=== PATIENT | male | born 1950 | race Caucasian/White ===

== ENCOUNTER 2017-09-16 04:43 | Emergency (ER) | payer OTHER ==
[2017-09-16 05:25] LABS: Hematocrit 42.5 % (42.0-52.0); Hemoglobin 14.3 gm/dL (13.5-18.0); Mean Cell Volume 93.8 fl (78-100); Mean Corpuscular Hemoglobin 31.6 pg (27-31); Mean Corpuscular Hgb Conc 33.6 g/dl (32-36); Neutrophil % 66.9 % (42-75.0); Platelet Count 179 K/mm3 (150-450); Red Blood Count 4.53 M/mm3 (4.7-6.0); Red Cell Distribution Width 13.5 % (11.5-14.0); White Blood Count 7.4 K/mm3 (4.0-10.5)
[2017-09-16 05:40] LABS: Albumin * 3.6 gm/dl (3.4-5.0); Anion Gap 14.3 mmol/L (6.8-13.8); Bilirubin, Total 0.6 mg/dL (0.0-1.1); Ca. Corrected For Albumin 8.7 mg/dL (8.4-10.2); Calcium * 8.7 mg/dL (7.9-10.9); Carbon Dioxide 24.6 mmol/L (24-32.6); Potassium 3.9 mmol/L (3.4-4.6); Total Protein 6.2 gm/dL (6.2-8.2)
--- NOTE | 2017-09-16 06:05 | ERNOTE ---
Medical Problem HPI - Narrative Date of Service: 09/16/17 - General Chief Complaint: General Assessment Time Seen by Provider: 09/16/17 04:55 Source: patient Exam Limitations: no limitations - Immun/Allergies/Home Medications Immunizations: IMMUNIZATION HX Immunizations Up to Date Yes Allergies/Adverse Reactions: Allergies cat dander Allergy (Verified 09/16/17 05:08) grass pollen Allergy (Verified 09/16/17 05:08) pollen extracts Allergy (Verified 09/16/17 05:08) promethazine [From Phenergan] Allergy (Verified 09/16/17 04:53) molds Allergy (Uncoded 09/16/17 05:08) Home Medications: HOME MEDICATIONS Amox Tr/Potassium Clavulanate [Augmentin 875-125 Tablet] 875 mg PO Q12H [Last Taken Unknown] Apixaban [Eliquis] 5 mg PO BID 09/16/17 [Last Taken Unknown] Atenolol [Tenormin] 200 mg PO DAILY 09/16/17 [Last Taken Unknown] Bupropion HCl [Wellbutrin Xl] 300 mg PO DAILY 09/16/17 [Last Taken Unknown] Finasteride [Proscar] 5 mg PO DAILY 09/16/17 [Last Taken Unknown] Flecainide Acetate 100 mg PO DAILY 09/16/17 [Last Taken Unknown] Fluticasone/Salmeterol [Advair 500-50 Diskus] 1 puff IH BID 09/16/17 [Last Taken Unknown] Lamotrigine [Lamictal] 200 mg PO BID 09/16/17 [Last Taken Unknown] Meloxicam [Mobic] 15 mg PO DAILY 09/16/17 [Last Taken Unknown] Ranitidine HCl [Zantac] 150 mg PO BID 09/16/17 [Last Taken Unknown] Sildenafil Citrate [Viagra] 25 mg PO PRN 09/16/17 [Last Taken Unknown] Tamsulosin HCl [Flomax] 0.4 mg PO DAILY 09/16/17 [Last Taken Unknown] Temazepam 15 mg PO HS #5 capsule 09/16/17 [Last Taken Unknown] traZODone HCL [Trazodone HCl] 100 mg PO HS 09/16/17 [Last Taken Unknown] - History of Present History Narrative: patient presents to ed with complaint of insomnia, has had recent health issues and is unable to sleep Timing: constant, getting worse Severity: moderate Modifying Factors - (Improves): Present: other - nothing Modifying Factors - (Worsens): Present: other - nothing Review of Systems - Narrative Narrative: see chief complaint - Review of Systems Constitutional: Present: See HPI, weakness, fatigue, malaise EYE: Present: no symptoms reported ENT: Present: no symptoms reported Respiratory: Present: no symptoms reported Cardiology: Present: no symptoms reported Gastrointestinal/Abdominal: Present: no symptoms reported Genitourinary: Present: no symptoms reported Musculoskeletal: Present: no symptoms reported Skin: Present: no symptoms reported Neurological: Present: See HPI, anxiety, depressed, emotional problems, weakness Endocrine: Present: no symptoms reported Hematologic/Lymphatic: Present: no symptoms reported Psych: Present: no symptoms reported All Other Systems: All systems neg except as marked - Narrative Narrative: unremarkable - Patient's Past Medical History Patient History - Medical: GERD, Obesity Patient History - Cardiac/Respiratory: Atrial Fibrillation, Asthma, TIA Patient History - Cancer: No Hx of Cancer Patient History - Surgical Procedures: T & A - Family History Family History:: no untoward family reactions to anesthesia, no familial bleeding tendencies, no family history of clotting disorders, no family history of premature - Social History Living Situations: home Psych History: Hx of Anxiety, Hx of Depression, Hx of Bipolar Disorder, Current tx/ever been on anti-depressants or anti-anxiety meds Does anyone smoke in the home?: No Smoking Status: Never smoker Have you smoked in the past 12 months: No Do you dip or chew tobacco: No Patient requests Smoking Cessation Consult: No Initiate information on Smoking Cessation: No Alcohol Use: none Drug Use: none - Immunizations Immunizations Up to Date: Yes Physical Exam - Physical Exam General Appearance: Present: mild distress, anxious Head Exam: Present: normal inspection, no evidence of injury Eye Exam: Normal inspection: bilateral, PERRL: bilateral, EOMI: bilateral Ears, Nose, Throat: Present: normal ENT inspection, normal pharynx Neck: Present: normal inspection, nontender Respiratory: Present: no respiratory distress, normal breath sounds, no accessory muscle use, chest nontender, lungs clear Cardiovascular/Chest: Present: regular rate, rhythm Peripheral Pulses: N=norm/S=strong/W=weak/B=bound/A=absent: Carotid (R): Normal , Carotid (L): Normal, Radial (R): Normal, Radial (L): Normal, Femoral (R): Normal, Femoral (L): Normal, Dorsalis-pedis (R): Normal, Dorsalis-pedis (L): Normal Gastrointestinal/Abdominal: Present: normal bowel sounds, nontender, nondistended, soft, no organomegaly Back Exam: Present: normal inspection, normal range of motion, no CVA tenderness , no vertebral tenderness Extremity Exam: Present: normal inspection, non-tender, normal range of motion, no edema Neurological Exam: Present: alert, oriented, normal mood/affect, no motor/ sensory deficits DTR: N=norm/NB=norm/brisk/A=abs/DD=dull/dimin/HC=hyperactive: Bicep (R): Normal , Bicep (L): Normal, Tricep (R): Normal, Tricep (L): Normal, Knee (R): Normal, Knee (L): Normal, Ankle (R): Normal, Ankle (L): Normal Skin Exam: Present: normal color, warm/dry Lymphatic Exam: Present: no adenopathy ED Progress - Date and Time Seen: Date and Time: 09/16/17 06:02 condition unchanged, discussed labs with patient to be dismissed - Results and Orders Patient's Lab Results:: I have reviewed the patient's lab results. - Vital Signs Patient's Vital Signs:: I have reviewed the patient's vital signs. Vital Signs: Vital Signs 09/16/17 09/16/17 09/16/17 04:47 05:02 05:43 Temperature 36.8 C Pulse Rate 79 70 66 Respiratory 18 18 20 Rate Blood Pressure 153/84 111/62 104/66 O2 Sat by Pulse 93 91 93 Oximetry - EKG EKG: NSR, other - first degree av block EKG read: Interp. by me - Progress/Reassessment Chief Complaint: General Assessment Progress:: Unchanged - Transfer of Care Expected Disposition: Discharge Plan - Plan Plan: to be discharged Departure Clinical Impression: Insomnia - Departure Disposition: Home self-care Condition: Fair Instructions: Insomnia Referrals: Mary Ware MD [Primary Care Provider] - Prescriptions: Temazepam 15 mg PO HS #5 capsule
[2017-09-16 06:10] VITALS: BP 120/63
[2017-09-16] MEDS ORDERED: TEMAZEPAM 15 MG CAPSULE PO SCH (06:15)
== END 2017-09-16 06:32 | disposition home or self-care (01) ==
LOC: ER 04:43
DX: G47.00 Insomnia, unspecified (principal); I48.91 Unspecified atrial fibrillation; K21.9 Gastro-esophageal reflux disease without esophagitis; E66.9 Obesity, unspecified; Z68.36 Body mass index [BMI] 36.0-36.9, adult

== ENCOUNTER 2018-12-11 11:15 | Observation (INO) ==
[2018-12-11] MEDS ORDERED: PROCHLORPERAZINE EDISYLATE 5 MG/ML VIAL IV ONE (11:27)
[2018-12-11] MEDS ORDERED: NORMAL SALINE 1,000 ML IV ONE (11:27)
[2018-12-11] MEDS ORDERED: MORPHINE SULFATE 4 MG/ML SYRG IV ONE ×2 (11:28→12:10)
[2018-12-11 11:47] LABS: Hematocrit 48.5 % (42.0-52.0); Hemoglobin 15.9 gm/dL (13.5-18.0); Mean Cell Volume 93.6 fl (78-100); Mean Corpuscular Hemoglobin 30.7 pg (27-31); Mean Corpuscular Hgb Conc 32.8 g/dl (32-36); Mean Platelet Volume 11.3 fl (8-11.3); Neutrophil # 7.3 K/mm3 (1.3-6.0); Neutrophil % 78.2 % (42-75.0); Platelet Count 192 K/mm3 (150-450); Red Blood Count 5.18 M/mm3 (4.7-6.0); Red Cell Distribution Width 12.7 % (11.5-14.0); White Blood Count 9.3 K/mm3 (4.0-10.5)
[2018-12-11 12:07] LABS: Albumin * 3.7 gm/dl (3.4-5.0); Anion Gap 12.5 mmol/L (6.8-13.8); Bilirubin, Total 0.6 mg/dL (0.0-1.1); Ca. Corrected For Albumin 8.9 mg/dL (8.4-10.2); Carbon Dioxide 28.1 mmol/L (24-32.6); Potassium 4.6 mmol/L (3.4-4.6); Total Protein 6.9 gm/dL (6.2-8.2)
[2018-12-11 12:18] LABS: Urine Bilirubin Negative (NEGATIVE); Urine Blood Negative /ul (NEGATIVE); Urine Ketone Negative (NEGATIVE); Urine Nitrite Negative (NEGATIVE); Urine Protein Negative (NEGATIVE); Urine Specific Gravity 1.015 SP.GR. (1.005-1.030); Urine Urobilinogen Normal (NORMAL)
[2018-12-11 12:26] LABS: Urine Appearance Clear (CLEAR); Urine Color Yellow
[2018-12-11 12:27] LABS: Urine Bacteria None Seen; Urine RBC None Seen /hpf (0-5); Urine WBC 0-5 /hpf (0-5)
--- NOTE | 2018-12-11 12:50 | ERNOTE ---
Abdominal HPI - Narrative Date of Service: 12/11/18 - General Chief Complaint: Abdominal Pain Time Seen by Provider: 12/11/18 11:58 Source: patient Exam Limitations: no limitations - Immun/Allergies/Home Medications Immunizatons: IMMUNIZATION HX Immunizations Up to Date Yes History of Influenza Vaccine Yes Hx Pneumococcal Vaccination Yes Allergies/Adverse Reactions: Allergies No Known Allergies Allergy (Verified 11/26/18 15:16) Home Medications: HOME MEDICATIONS Atenolol [Tenormin] 200 mg PO DAILY MDD TAKES 2 TABS OF 100 MG 09/16/17 [Last Taken 10/01/18 07:00] Bupropion HCl [Wellbutrin Xl] 300 mg PO DAILY 09/16/17 [Last Taken 10/01/18 07:00] Flecainide Acetate 100 mg PO DAILY 09/16/17 [Last Taken 10/01/18 07:00] Cyanocobalamin [Vitamin B-12] 1,000 mcg PO DAILY 10/17/17 [Last Taken 10/01/18 07:00] lamoTRIgine [Lamictal] 200 mg PO BID 10/17/17 [Last Taken 10/01/18 07:00] loratadine 10 mg tablet 10 mg PO DAILY 03/14/18 [Last Taken 10/01/18 07:00] dexlansoprazole 30 mg capsule,biphase delayed release 30 mg PO DAILY #90 cap 03/21/18 [Last Taken 10/01/18 07:00] tamsulosin 0.4 mg capsule 0.4 mg PO BID cap 04/04/18 [Last Taken 10/01/18 07:00] valsartan 80 mg tablet 80 mg PO DAILY #30 tab 06/18/18 [Last Taken 10/01/18 07:00] fluticasone 500 mcg-salmeterol 50 mcg/dose blistr powdr for inhalation 1 inh IH BID #60 ea 07/06/18 [Last Taken 09/03/18] fluticasone 50 mcg/actuation nasal spray,suspension 2 spray PAULETTE DAILY #16 g 08/20/18 [Last Taken 09/03/18] [CPAP] 0 ea .ROUTE .MEDSUPPLY 09/03/18 [Last Taken 09/02/18] trazodone 100 mg tablet 200 mg PO HS PRN tab 09/20/18 [Last Taken 10/01/18 07:00] apixaban 5 mg tablet 5 mg PO BID 10/18/18 [Last Taken Unknown] ranitidine 300 mg capsule 300 mg PO HS #90 cap 10/29/18 [Last Taken Unknown] folic acid 1 mg tablet 1 mg PO DAILY #90 tab 11/27/18 [Last Taken Unknown] - History of Present Illness Narrative: Patient presents to the ED feeling quite poorly. Vomiting, severe upper abdominal discomfort, some loose stools. No Cp or SOB. This began today. He had eaten twice out of town yesterday on a trip to [facility] but no one else sick. No fever. No blood in the stool. Most pain mid-epigastric. Phenergan at home did not help. Timing: constant, other - fluctuating intensity Quality: aching Activities at Onset: none Modifying Factors - (Improves): Present: other - nothing Modifying Factors - (Worsens): Present: other - nothing Associated Symptoms: Absent: headache, fever/chills, shortness of breath Prior Abdominal Problems: Absent: similar symptoms Prior Treatment: Absent: recently seen Review of Systems - Review of Systems Constitutional: Absent: fever ENT: Present: no symptoms reported Respiratory: Absent: shortness of breath Cardiology: Absent: chest pain Gastrointestinal/Abdominal: Present: See HPI Genitourinary: Absent: dysuria Skin: Present: no symptoms reported Neurological: Absent: weakness Medical History (Updated 12/09/18 @ 15:39 by Mary Ware MD) Asthma Onset Date: Unknown Atrial fibrillation Onset Date: ~1993 intermittent BPH (benign prostatic hyperplasia) Onset Date: Unknown with obstruction/lower urinary tract symptoms Dyshidrotic eczema Onset Date: 11/19/15 Enlarged prostate with lower urinary tract symptoms (LUTS) Onset Date: Unknown Gastro-esophageal reflux Onset Date: Unknown Kidney stones Onset Date: ~09/2017 several on left side Knee pain Onset Date: Unknown right No history of alcohol use Non-tobacco user Psoriasis Onset Date: Unknown Right knee DJD Onset Date: Unknown Seasonal allergies Onset Date: Unknown [place] pollen, cedar pollen, elm pollen, grass, molds, mites, house dust, dust mites cat dander TBI (traumatic brain injury) Onset Date: 2006 2006 right side of head TIA (transient ischemic attack) Onset Date: 12/30/15 Weakness Onset Date: Unknown Wears glasses Wrist pain Onset Date: Unknown right wrist Surgical History: Surgical History (Updated 09/26/18 @ 11:53 by Mary Ware MD) H/O adenoidectomy Onset Date: ~1955 H/O right cataract extraction H/O tooth extraction Onset Date: ~1968 wisdom teeth H/O vasectomy Onset Date: ~1985 History of esophagogastroduodenoscopy (EGD) History of tonsillectomy Onset Date: ~1955 Status post debridement Onset Date: ~05/2007 Debridement and closure of lacerations. Multiple lacerations to scalp and right ear. Status post laser lithotripsy of ureteral calculus Family History: Family History (Last Reviewed 12/11/18 @ 12:44 by Davide Laura MD) Brother Kidney stones Environmental allergies Osteoarthritis Daughter Alive and well Daughter Alive and well Father , 78 A-fib Cancer bile duct cancer Hypertension Mother , 80s Alzheimers disease A-fib Heart disease CABG Cancer Endometrial cancer Hypertension Social History: Preferred Language Dominican Do you have any hinduism or Yes: gnosticist cultural preference? Smoking Status Never smoker Abuse History No History of abuse Psych History No pertinent hx,Hx of Anxiety,Currently on Meds Alcohol Use none Drug Use none (Last Updated 12/09/18 @ 15:40 by Mary Ware MD) No Social History Section defined Physical Exam - Physical Exam General Appearance: Present: alert, other - does not appear to feel well Head Exam: Present: normal inspection, no evidence of injury Eye Exam: Normal inspection: bilateral, PERRL: bilateral Ears, Nose, Throat: Present: dry mucous membranes Neck: Present: normal inspection Respiratory: Present: no respiratory distress, no accessory muscle use, lungs clear Cardiovascular/Chest: Absent: irregularly irregular Gastrointestinal/Abdominal: Present: normal bowel sounds, soft, tenderness, other - tenderness epigastrium, moderate, some guarding with this. no mass. No other tendenress. Extremity Exam: Present: other - no deformity Neurological Exam: Present: alert, other - no acute unilateral focal motor or sensory deficits Skin Exam: Present: normal color, warm/dry Progress - Results and Orders Patient's Lab Results:: I have reviewed the patient's lab results. - Vital Signs Patient's Vital Signs:: I have reviewed the patient's vital signs. Vital Signs: Vital Signs 12/11/18 11:15 12/11/18 11:50 12/11/18 12:21 Temperature 36.8 C Pulse Rate 77 69 62 Respiratory Rate 14 15 14 Blood Pressure 134/78 128/79 114/73 O2 Sat by Pulse Oximetry 97 95 91 L - X-Ray X-Ray #1 X-Ray: abdomen Interpretation: Interp. by me X-ray Comments: I reviewed official radiology report - Progress/Reassessment Chief Complaint: Abdominal Pain Progress Note-Subjective: 12/11/18 12:[address] Ware, he is not here today. 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 He is going to need a CT but with his nausea we will give him some time with the antiemetics before he starts drinking contrast. Patient agreeable. Departure Clinical Impression: Abdominal pain, Vomiting, Dehydration, Colitis - Departure Disposition: Still a patient Condition: Stable
[2018-12-11] MEDS ORDERED: DIATRIZOATE MEGLUMINE, SODIUM 30 ML BTL PO ONE (13:47)
--- NOTE | 2018-12-11 16:25 | HPDIS ---
Chief Complaint - Chief Complaint Date of Service: 12/11/18 Time of Service: 16:01 Chief Complaint: Abdominal Pain History of Present Illness: Iglesia is a 68 yo male that reports sudden onset of severe epigastric abdominal pain with radiation to LUQ. He also had nausea and vomiting and stools are softer than usual. He had phenergan at home but this did not help with nausea. He reports traveling to [place] yesterday and ate at [facility] in [place] and [facility], but did not think anything was otherwise out of the ordinary. He denies any friends or family with similar episodes and he has otherwise been feeling well. He has not had any similar symptoms in the past. Vomit was food contents, no blood. No blood in stools. No fever, chills. He reports usual sinus symptoms but otherwise nothing out of the ordinary. Medical History (Updated 12/11/18 @ 16:25 by Jesus Bradley DO) Asthma Onset Date: Unknown Atrial fibrillation Onset Date: ~1993 intermittent BPH (benign prostatic hyperplasia) Onset Date: Unknown with obstruction/lower urinary tract symptoms Dyshidrotic eczema Onset Date: 11/19/15 Enlarged prostate with lower urinary tract symptoms (LUTS) Onset Date: Unknown Gastro-esophageal reflux Onset Date: Unknown Kidney stones Onset Date: ~09/2017 several on left side Knee pain Onset Date: Unknown right No history of alcohol use Non-tobacco user Psoriasis Onset Date: Unknown Right knee DJD Onset Date: Unknown Seasonal allergies Onset Date: Unknown [place] pollen, cedar pollen, elm pollen, grass, molds, mites, house dust, dust mites cat dander TBI (traumatic brain injury) Onset Date: 2006 2006 right side of head TIA (transient ischemic attack) Onset Date: 12/30/15 Weakness Onset Date: Unknown Wears glasses Wrist pain Onset Date: Unknown right wrist Surgical History: Surgical History (Updated 12/11/18 @ 16:25 by Jesus Bradley DO) H/O adenoidectomy Onset Date: ~1955 H/O right cataract extraction H/O tooth extraction Onset Date: ~1968 wisdom teeth H/O vasectomy Onset Date: ~1985 History of esophagogastroduodenoscopy (EGD) History of tonsillectomy Onset Date: ~1955 Status post debridement Onset Date: ~05/2007 Debridement and closure of lacerations. Multiple lacerations to scalp and right ear. Status post laser lithotripsy of ureteral calculus Family History: Family History (Last Reviewed 12/11/18 @ 13:23 by Claude Sylvester RN) Brother Kidney stones Environmental allergies Osteoarthritis Daughter Alive and well Daughter Alive and well Father , 78 A-fib Cancer bile duct cancer Hypertension Mother , 80s Alzheimers disease A-fib Heart disease CABG Cancer Endometrial cancer Hypertension Social History: Patient Lives/Resources With Spouse Utilized Occupation Doctor Preferred Language [place] Do you have any amish or Yes: Yazidi cultural preference? Smoking Status Never smoker Have you smoked in the past 12 No months Do you dip or chew tobacco No Abuse History No History of abuse Psych History No pertinent hx,Hx of Anxiety,Currently on Meds Alcohol Use none Drug Use none (Last Updated 12/09/18 @ 15:40 by Mary Ware MD) No Social History Section defined Review Of Systems (GEN) - Review of Systems Generalized/Overall Review: Absent: Weakness, Chills, Fever EENTM: Present: No Symptoms Reported Respiratory: Present: No Symptoms Reported Cardiac: Present: No Symptoms Reported Abdominal: Present: Nausea, Vomiting, Abdominal Pain. Absent: Hematemesis, Constipation, Melena Genitourinary: Present: No Symptoms Reported Musculoskeletal: Present: No Symptoms Reported Neurological: Present: No Symptoms Reported Skin: Present: No Symptoms Reported Immunizations: IMMUNIZATION HX Immunizations Up to Date Yes History of Influenza Vaccine Yes Hx Pneumococcal Vaccination Yes Allergies/Adverse Reactions: Allergies Allergy/AdvReac Type Severity Reaction Status Date / Time No Known Allergies Allergy Verified 12/11/18 13:21 Home Medications: HOME MEDICATIONS Atenolol [Tenormin] 200 mg PO DAILY MDD TAKES 2 TABS OF 100 MG 09/16/17 [Last Taken 10/01/18 07:00] Bupropion HCl [Wellbutrin Xl] 300 mg PO DAILY 09/16/17 [Last Taken 10/01/18 07:00] Flecainide Acetate 100 mg PO DAILY 09/16/17 [Last Taken 10/01/18 07:00] Cyanocobalamin [Vitamin B-12] 1,000 mcg PO DAILY 10/17/17 [Last Taken 10/01/18 07:00] lamoTRIgine [Lamictal] 200 mg PO BID 10/17/17 [Last Taken 10/01/18 07:00] loratadine 10 mg tablet 10 mg PO DAILY 03/14/18 [Last Taken 10/01/18 07:00] dexlansoprazole 30 mg capsule,biphase delayed release 30 mg PO DAILY #90 cap 03/21/18 [Last Taken 10/01/18 07:00] tamsulosin 0.4 mg capsule 0.4 mg PO BID cap 04/04/18 [Last Taken 10/01/18 07:00] valsartan 80 mg tablet 80 mg PO DAILY #30 tab 06/18/18 [Last Taken 10/01/18 07:00] fluticasone 500 mcg-salmeterol 50 mcg/dose blistr powdr for inhalation 1 inh IH BID #60 ea 07/06/18 [Last Taken 09/03/18] fluticasone 50 mcg/actuation nasal spray,suspension 2 spray PAULETTE DAILY #16 g 08/20/18 [Last Taken 09/03/18] [CPAP] 0 ea .ROUTE .MEDSUPPLY 09/03/18 [Last Taken 09/02/18] trazodone 100 mg tablet 200 mg PO HS PRN tab 09/20/18 [Last Taken 10/01/18 07:00] apixaban 5 mg tablet 5 mg PO BID 10/18/18 [Last Taken Unknown] ranitidine 300 mg capsule 300 mg PO HS #90 cap 10/29/18 [Last Taken Unknown] folic acid 1 mg tablet 1 mg PO DAILY #90 tab 11/27/18 [Last Taken Unknown] Prochlorperazine Maleate [Compazine] 10 mg PO QID PRN #30 tab 12/11/18 [Last Taken Unknown] oxyCODONE HCL/ACETAMINOPHEN [Oxycodone-Acetaminophen 5-325] 1 ea PO Q6H #20 tab 12/11/18 [Last Taken Unknown] Exam - Exam Vital Signs: Vital Signs - Last Taken Temp 36.6 C 12/11/18 13:35 Pulse 65 12/11/18 13:41 Resp 18 12/11/18 13:35 BP 104/59 12/11/18 13:35 Pulse Ox 92 L 12/11/18 13:35 Constitutional: Present: Alert, Oriented x3, Cooperative ENT Exam: Present: hearing grossly normal Eye Exam: bilateral eye: normal inspection Neck: Present: normal inspection Respiratory: Present: lungs clear, normal breath sounds Cardiovascular/Chest: Present: regular rate, rhythm, no murmur Abdomen: Present: Normal bowel sounds, soft, tender - mild tenderness to palpation at epigastrum Skin Exam: Present: normal color, warm/dry, no cyanosis Appearance: Present: appropriate appearance, appropriate insight Eye contact: Present: cooperative, good eye contact, normal speech Thoughts: Present: normal thought pattern, no apparent hallucination Diagnostic Studies: Abnormal Lab Results 12/11/18 12/11/18 Range/Units 11:40 11:40 Neutrophils % 78.2 H (42-75.0) % Lymphocytes % 12.3 L (20-51) % Neutrophils # 7.3 H (1.3-6.0) K/mm3 Lymphocytes # 1.14 L (1.5-3.5) k/mm3 Creatinine 1.43 H (0.4-1.4) mg/dL Est GFR (Non-Af Amer) 52 L (60-130) mL/min Laboratory Results WBC 9.3 K/mm3 (4.0-10.5) 12/11/18 11:40 RBC 5.18 M/mm3 (4.7-6.0) 12/11/18 11:40 Hgb 15.9 gm/dL (13.5-18.0) 12/11/18 11:40 Hct 48.5 % (42.0-52.0) 12/11/18 11:40 MCV 93.6 fl (78-100) 12/11/18 11:40 MCH 30.7 pg (27-31) 12/11/18 11:40 MCHC 32.8 g/dl (32-36) 12/11/18 11:40 RDW 12.7 % (11.5-14.0) 12/11/18 11:40 Plt Count 192 K/mm3 (150-450) 12/11/18 11:40 MPV 11.3 fl (8-11.3) 12/11/18 11:40 Immature Gran % (Auto) 0.20 % (0.001-0.429) 12/11/18 11:40 Immature Gran # (Auto) 0.02 K/mm3 (0.000-0.0310) 12/11/18 11:40 78.2 % (42-75.0) H 12/11/18 11:40 12.3 % (20-51) L 12/11/18 11:40 6.4 % (0.0-9) 12/11/18 11:40 2.6 % (0.0-3.0) 12/11/18 11:40 0.3 % (0.0-1.0) 12/11/18 11:40 Nucleated RBC % 0.0 k/mm3 (0-1) 12/11/18 11:40 7.3 K/mm3 (1.3-6.0) H 12/11/18 11:40 1.14 k/mm3 (1.5-3.5) L 12/11/18 11:40 0.6 k/mm3 (0.0-1.0) 12/11/18 11:40 0.2 k/mm3 (0.0-0.7) 12/11/18 11:40 Absolute Basophils 0.0 k/mm3 (0.0-0.1) 12/11/18 11:40 Sodium 141 mmol/L (132-142) 12/11/18 11:40 141 mmol/L (130-142) 12/11/18 11:40 Potassium 4.6 mmol/L (3.4-4.6) D 12/11/18 11:40 Chloride 105 mmol/L (97-106) 12/11/18 11:40 Carbon Dioxide 28.1 mmol/L (24-32.6) 12/11/18 11:40 12.5 mmol/L (6.8-13.8) 12/11/18 11:40 BUN 20 mg/dL (6-23) 12/11/18 11:40 1.43 mg/dL (0.4-1.4) H 12/11/18 11:40 Est GFR (Non-Af Amer) 52 mL/min (60-130) L 12/11/18 11:40 14.0 (9.0-21.6) 12/11/18 11:40 105 mg/dL (70-110) 12/11/18 11:40 Calcium 9.0 mg/dL (7.9-10.9) 12/11/18 11:40 Calcium Adj for Albumin 8.9 mg/dL (8.4-10.2) 12/11/18 11:40 0.6 mg/dL (0.0-1.1) 12/11/18 11:40 AST 22 U/L (0-48) 12/11/18 11:40 ALT 30 U/L (19-67) 12/11/18 11:40 84 U/L (50-170) 12/11/18 11:40 6.9 gm/dL (6.2-8.2) 12/11/18 11:40 3.7 gm/dl (3.4-5.0) 12/11/18 11:40 114 U/L (73-393) 12/11/18 11:40 Yellow 12/11/18 12:10 Clear (CLEAR) 12/11/18 12:10 6.0 pH (5.0-7.0) 12/11/18 12:10 Ur Specific [place] 1.015 SP.GR. (1.005-1.030) 12/11/18 12:10 Negative mg/dL (NEGATIVE) 12/11/18 12:10 Negative mg/dL (NEGATIVE) 12/11/18 12:10 Negative mg/dL (NEGATIVE) 12/11/18 12:10 Negative /ul (NEGATIVE) 12/11/18 12:10 Negative (NEGATIVE) 12/11/18 12:10 Negative mg/dl (NEGATIVE) 12/11/18 12:10 Normal EU/dl (NORMAL) 12/11/18 12:10 Ur Leukocyte Esterase Negative /ul (NEGATIVE) 12/11/18 12:10 None seen /hpf (0-5) 12/11/18 12:10 0-5 /hpf (0-5) 12/11/18 12:10 Ur Epithelial Cells 0-5 /hpf (0-5) 12/11/18 12:10 None seen (NONE) 12/11/18 12:10 No culture indicated 12/11/18 12:10 Assessment/Plan - Narrative Narrative: Iglesia is a 68 yo male with mild dehydration due to nausea and vomiting with abdominal pain. Unable to get Abdomen/pelvis CT with contrast in the ER due to nausea and vomiting. Will try to control nausea in observation with compazine, once controlled will plan to get CT with contrast and then further treat based on these findings. If pain and nausea get controlled may be able to discharge later as long as there are no significant abnormalities on CT scan. - Assessment/Plan (1) Colitis Problem: Acute (2) Abdominal pain Problem: Acute (3) Vomiting Problem: Acute (4) Dehydration Problem: Acute (1) Colitis Problem: Acute (2) Abdominal pain Problem: Acute (3) Vomiting Problem: Acute (4) Dehydration Problem: Acute Description of Stay: Iglesia was admitted due to severe epigastric and LUQ abdominal pain with nausea and vomiting. Xray in the ER indicated large bowel obstruction. He was having too much nausea and vomiting to adequately get a contrast CT in the ER. He was admitted to observation for control of nausea and vomiting prior to getting a CT with contrast. His nausea and vomiting were controlled with compazine and he was able to get CT of abdomen/pelvis with contrast. CT showed no obvious obstruction. There is potential for colitis and diverticulitis. There was no abscess present. There are no significant findings that meet inpatient criteria and he is feeling better after the CT. Will plan to discharge to home. He will take it easy with food sticking to liquid and soft foods. I do not see an indication for antibiotics at this time. I will give him a prescription for compazine for nausea and percocet for pain as needed. Due to slightly low GFR and getting contrast for his CT will encourage fluid for hydration. He may follow up with Dr. Ware as needed. Procedures Performed: none Results and Findings: Lab Pending Results 12/11/18 11:40: WBC 9.3, RBC 5.18, Hgb 15.9, Hct 48.5, MCV 93.6, MCH 30.7, MCHC 32.8, RDW 12.7, Plt Count 192, MPV 11.3, Immature Gran % (Auto) 0.20, Immature Gran # (Auto) 0.02, Neutrophils % 78.2 H, Lymphocytes % 12.3 L, Monocytes % 6.4, Eosinophils % 2.6, Basophils % 0.3, Nucleated RBC % 0.0, Neutrophils # 7.3 H, Lymphocytes # 1.14 L, Monocytes # 0.6, Eosinophils # 0.2, Absolute Basophils 0.0 12/11/18 11:40: Sodium 141, Plasma Sodium 141, Potassium 4.6 D, Chloride 105, Carbon Dioxide 28.1, Anion Gap 12.5, BUN 20, Creatinine 1.43 H, Est GFR (Non-Af Amer) 52 L, BUN/Creatinine Ratio 14.0, Random Glucose 105, Calcium 9.0, Calcium Adj for Albumin 8.9, Total Bilirubin 0.6, AST 22, ALT 30, Alkaline Phosphatase 84, Total Protein 6.9, Albumin 3.7, Lipase 114 12/11/18 12:10: Urine Color Yellow, Urine Appearance Clear, Urine pH 6.0, Ur Specific [place] 1.015, Urine Protein Negative, Urine Glucose (UA) Negative, Urine Ketones Negative, Urine Blood Negative, Urine Nitrate Negative, Urine Bilirubin Negative, Urine Urobilinogen Normal, Ur Leukocyte Esterase Negative, Urine RBC None seen, Urine WBC 0-5, Ur Epithelial Cells 0-5, Urine Bacteria None seen, Urine Culture Comments No culture indicated Discharge Location: Home Disposition: Home self-care Condition: Stable Discharge Activity: Activity as tolerated Discharge Diet: Other - Liquid and soft foods Referrals: Mary Ware MD [Primary Care Provider] - (1 week as needed) Problem Oriented Discharge Instructions to Patient/Family: Colitis Additional Patient Instructions (free text): Drink plenty of fluids to rehydrate. Prescriptions (Any new or edited meds): Prochlorperazine Maleate [Compazine] 10 mg PO QID PRN #30 tab PRN Reason: Nausea oxyCODONE HCL/ACETAMINOPHEN [Oxycodone-Acetaminophen 5-325] 1 ea PO Q6H #20 tab Complete Home Medications List: Complete Home Medication List: Atenolol [Tenormin] 200 mg PO DAILY MDD TAKES 2 TABS OF 100 MG 09/16/17 Bupropion HCl [Wellbutrin Xl] 300 mg PO DAILY 09/16/17 Flecainide Acetate 100 mg PO DAILY 09/16/17 Cyanocobalamin [Vitamin B-12] 1,000 mcg PO DAILY 10/17/17 lamoTRIgine [Lamictal] 200 mg PO BID 10/17/17 loratadine 10 mg tablet 10 mg PO DAILY 03/14/18 dexlansoprazole 30 mg capsule,biphase delayed release 30 mg PO DAILY #90 cap 03/21/18 tamsulosin 0.4 mg capsule 0.4 mg PO BID cap 04/04/18 valsartan 80 mg tablet 80 mg PO DAILY #30 tab 06/18/18 fluticasone 500 mcg-salmeterol 50 mcg/dose blistr powdr for inhalation 1 inh IH BID #60 ea 07/06/18 fluticasone 50 mcg/actuation nasal spray,suspension 2 spray PAULETTE DAILY #16 g 08/20/18 [CPAP] 0 ea .ROUTE .MEDSUPPLY 09/03/18 trazodone 100 mg tablet 200 mg PO HS PRN tab 09/20/18 apixaban 5 mg tablet 5 mg PO BID 10/18/18 ranitidine 300 mg capsule 300 mg PO HS #90 cap 10/29/18 folic acid 1 mg tablet 1 mg PO DAILY #90 tab 11/27/18 Prochlorperazine Maleate [Compazine] 10 mg PO QID PRN #30 tab 12/11/18 oxyCODONE HCL/ACETAMINOPHEN [Oxycodone-Acetaminophen 5-325] 1 ea PO Q6H #20 tab 12/11/18
[2018-12-11 17:18] VITALS: BP 123/76
== END 2018-12-11 17:30 | disposition home or self-care (01) ==
LOC: MS 11:15 → ER 11:15 → MS 13:15
PROVIDERS: ADMIT Family Medicine; ATTEND Family Medicine
CPT/HCPCS: 36415; 74019; 74020; 74177; 80053; 81001; 83690; 85025; 96361; 96374; 96375; 99284; Q9967

== ENCOUNTER 2019-01-23 09:37 | Observation (INO) ==
[2019-01-23 10:56] LABS: Hemoglobin 10.7 gm/dL (13.5-18.0); Mean Cell Volume 96.2 fl (78-100); Mean Corpuscular Hemoglobin 31.2 pg (27-31); Mean Corpuscular Hgb Conc 32.4 g/dl (32-36); Mean Platelet Volume 9.8 fl (8-11.3); Neutrophil # 4.7 K/mm3 (1.3-6.0); Neutrophil % 66.5 % (42-75.0); Platelet Count 291 K/mm3 (150-450); Red Blood Count 3.43 M/mm3 (4.7-6.0); Red Cell Distribution Width 13.8 % (11.5-14.0); White Blood Count 7.1 K/mm3 (4.0-10.5)
[2019-01-23 11:08] LABS: Albumin * 2.9 gm/dl (3.4-5.0); Anion Gap 12.1 mmol/L (6.8-13.8); BUN/Creatinine Ratio 11.1 (9.0-21.6); Bilirubin, Total 0.9 mg/dL (0.0-1.1); Ca. Corrected For Albumin 9.1 mg/dL (8.4-10.2); Calcium * 8.5 mg/dL (7.9-10.9); Carbon Dioxide 28.3 mmol/L (24-32.6); Potassium 4.4 mmol/L (3.4-4.6); TSH * 2.348 uIU/mL (0.358-3.74); Total Protein 5.9 gm/dL (6.2-8.2)
[2019-01-23] MEDS ORDERED: NORMAL SALINE 1,000 ML IV PRN (11:26)
[2019-01-23] MEDS ORDERED: oxyCODONE HCL/ACETAMINOPHEN 1 TAB TABLET PO PRN (11:34)
[2019-01-23] MEDS ORDERED: PROCHLORPERAZINE MALEATE 10 MG TABLET PO PRN (11:34)
--- NOTE | 2019-01-23 18:00 | PN ---
Lilibeth Note - Interim Date: 01/23/19 Time: 17:52 Narrative: 01/23/19 17:53 I saw and examined the patient in the [facility] floor on 01/23/2019 after he was admitted from my office. I have reviewed the patient's laboratory results and imaging results. His echocardiogram showed mild concentric left ventricular hypertrophy, normal ejection fraction and no diastolic dysfunction, trace tricuspid regurgitation with an RVSP of 29. He is back again to normal sinus rhythm from A. fib. His electrolytes were within normal limits, chest x-ray did not show any acute cardiopulmonary findings, troponin, TSH were normal. His multiple signs and symptoms most likely is secondary to the stress of his recent surgery which put him into atrial fibrillation. His rhythm was always controlled with his flecainide in the past. I did give him IV fluids for orthostasis (he got very dizzy when I stood him up from the examining table in my office) even though his BNP was elevated as his chest x-ray showed no pulmonary congestion and my physical exam did not show him to be in any congestive heart failure. My office clinic visit notes will serve as my history of present illness for this admission.
[2019-01-23] MEDS: oxyCODONE HCL/ACETAMINOPHEN 1 TAB TABLET PO PRN (18:32)
[2019-01-23] MEDS ORDERED: traZODone HCL 50 MG TABLET PO SCH (21:00)
[2019-01-23] MEDS ORDERED: FAMOTIDINE 20 MG TABLET PO SCH (21:00)
[2019-01-23] MEDS: FLUTICASONE PROPION/SALMETEROL 14 PUFF DISK.W.DEV IH SCH (22:18)
[2019-01-23] MEDS: lamoTRIgine 100 MG TABLET PO SCH (22:19)
[2019-01-23] MEDS: TAMSULOSIN HCL 0.4 MG CAP.SR.24H PO SCH (22:19)
[2019-01-23] MEDS: MAGNESIUM HYDROXIDE 30 ML UDC PO SCH (22:19)
[2019-01-23] MEDS: APIXABAN 5 MG TABLET PO SCH (22:19)
[2019-01-23] MEDS: IRON POLYSACCHARIDE COMPLEX 1 CAP CAPSULE PO SCH (22:20)
[2019-01-24] MEDS: oxyCODONE HCL/ACETAMINOPHEN 1 TAB TABLET PO PRN ×2 (03:59→07:59)
[2019-01-24] MEDS ORDERED: PANTOPRAZOLE SODIUM 20 MG TABLET.DR PO SCH (07:00)
[2019-01-24] MEDS: lamoTRIgine 100 MG TABLET PO SCH (08:53)
[2019-01-24] MEDS: APIXABAN 5 MG TABLET PO SCH (08:54)
[2019-01-24] MEDS: IRON POLYSACCHARIDE COMPLEX 1 CAP CAPSULE PO SCH (08:54)
[2019-01-24] MEDS: FLUTICASONE PROPION/SALMETEROL 14 PUFF DISK.W.DEV IH SCH (08:54)
[2019-01-24] MEDS: TAMSULOSIN HCL 0.4 MG CAP.SR.24H PO SCH (08:54)
--- NOTE | 2019-01-24 08:57 | DS ---
(1) Irregular heartbeat Diagnosis(s): AFib Problem: Resolved (2) Loss of appetite Problem: Acute (3) Atrial fibrillation Diagnosis(s): was controlled with fleicainide and is back to NSR again Problem: Resolved Qualifiers: (4) S/P total knee replacement Problem: Acute Qualifiers: Laterality: right Qualified Code(s): Z96.651 - Presence of right artificial knee joint (5) Anxiety with depression Problem: Chronic (6) Weakness Problem: Acute (7) GERD (gastroesophageal reflux disease) Problem: Chronic Qualifiers: (8) Hypertension Problem: Chronic Qualifiers: (9) CYNDEE on CPAP Problem: Chronic (10) Osteoarthritis Problem: Chronic Qualifiers: (11) Psoriasis Problem: Chronic (12) Hypothyroidism Problem: Chronic Qualifiers: Description of Stay: Iglesia GonzalesngQian is a 68-year-old white male who presented to the office on 01/23/2019 for weakness, irregular heart beat, dry mouth, fatigued, loss of appetite and feeling anxious. He stated that the symptoms were becoming worse everyday. 7 days prior to admission the patient underwent a right total knee arthroplasty in [facility] and had a rough postoperative course. On his first postoperative day the patient blood pressure bottomed down and they stopped his valsartan and atenolol. He had presyncopal episode at that time. On his second postoperative day the patient was hard to be woken up and when he did get through he was just babbling his words. He was found to be anemic and hyponatremic. As per patient his sodium was 126 and on discharge was 131. He also contnued to take his atenolol at 200 mg PO Q daily after discharge even though it was discontinued. Ever since discharge however he noticed that his heartbeat has been irregular. He does have a history of atrial fibrillation but has been rhythm controlled with flecainide. He also has been getting more weaker, experiencing dry mouth with loss of appetite. He became lightheaded and dizzy when I stood him up in the clinic from the examing table. His EKG in the clinic showed atrial fibrillation rate controlled of 73 bpm. He was then admitted for observation . His work up were essentially WNL except for a Hb of 10.8. ( preop was 14.5 ), BNP of 3240, Echo showing mild concentric LVH, normal EF, normal diastolic function, mild lAE, RVSP is 29 .. His CXR showed not acute cardiopulmonary findings. His TSH was normal.. He was given a 1 liter of NSS . He converted spontaneously to NSR, 1st degree AV block. He is feeling signif icantly better and wants to go home. He will continue with our PT here as an outpatient. Procedures Performed: none Results and Findings: Lab Pending Results 01/23/19 10:39: WBC 7.1, RBC 3.43 L, Hgb 10.7 L, Hct 33.0 L, MCV 96.2, MCH 31.2 H, MCHC 32.4, RDW 13.8, Plt Count 291, MPV 9.8, Immature Gran % (Auto) 0.40, Immature Gran # (Auto) 0.03, Neutrophils % 66.5, Lymphocytes % 18.9 L, Monocytes % 10.4 H, Eosinophils % 3.2 H, Basophils % 0.6, Nucleated RBC % 0.0, Neutrophils # 4.7, Lymphocytes # 1.35 L, Monocytes # 0.7, Eosinophils # 0.2, Absolute Basophils 0.0 01/23/19 10:39: Sodium 140, Plasma Sodium 140, Potassium 4.4, Chloride 104, Carbon Dioxide 28.3, Anion Gap 12.1, BUN 16, Creatinine 1.44 H, Est GFR (Non-Af Amer) 52 L, BUN/Creatinine Ratio 11.1, Random Glucose 92, Calcium 8.5, Calcium Adj for Albumin 9.1, Total Bilirubin 0.9, AST 24, ALT 25, Alkaline Phosphatase 56, Total Protein 5.9 L, Albumin 2.9 L, TSH 2.348 01/23/19 10:39: Troponin I Less than 0.017 01/23/19 10:39: B-Natriuretic Peptide 3655 H 01/23/19 17:28: Troponin I Less than 0.017 Discharge Location: Home Disposition: Home self-care Condition: Stable Discharge Activity: Activity as tolerated Discharge Diet: Low salt, Low fat/chol Referrals: Mary Ware MD [Primary Care Provider] - Additional Patient Instructions (free text): Follow up with PCP in 2 weeks. Patient prefers to make his own follow up appointment. Prescriptions (Any new or edited meds): Flecainide Acetate [Tambocor] 50 mg PO Q12H #60 tab Atenolol [Tenormin] 100 mg PO DAILY #30 tab Complete Home Medications List: Complete Home Medication List: Bupropion HCl [Wellbutrin Xl] 300 mg PO DAILY 09/16/17 Cyanocobalamin [Vitamin B-12] 1,000 mcg PO DAILY 10/17/17 lamoTRIgine [Lamictal] 200 mg PO BID 10/17/17 loratadine 10 mg tablet 10 mg PO DAILY 03/14/18 dexlansoprazole 30 mg capsule,biphase delayed release 30 mg PO DAILY #90 cap 03/21/18 tamsulosin 0.4 mg capsule 0.4 mg PO BID cap 04/04/18 fluticasone 500 mcg-salmeterol 50 mcg/dose blistr powdr for inhalation 1 inh IH BID #60 ea 07/06/18 fluticasone 50 mcg/actuation nasal spray,suspension 2 spray PAULETTE DAILY #16 g 08/20/18 [CPAP] 0 ea .ROUTE .MEDSUPPLY 09/03/18 trazodone 100 mg tablet 200 mg PO HS tab 09/20/18 apixaban 5 mg tablet 5 mg PO BID 10/18/18 ranitidine 300 mg capsule 300 mg PO HS #90 cap 10/29/18 folic acid 1 mg tablet 1 mg PO DAILY #90 tab 11/27/18 Prochlorperazine Maleate [Compazine] 10 mg PO QID PRN #30 tab 12/11/18 Magnesium Hydroxide [Milk Of Magnesia] 60 ml PO BID 01/23/19 oxyCODONE HCL/ACETAMINOPHEN [Percocet 5-325 mg Tablet] 2 ea PO Q4H PRN 01/23/19 oxycodone-acetaminophen 5 mg-325 mg tablet 1 tab PO Q4H PRN #0.1 tab 01/23/19 polysaccharide iron complex 150 mg iron capsule 150 mg PO BID #60 cap 01/23/19 Atenolol [Tenormin] 100 mg PO DAILY #30 tab 01/24/19 Flecainide Acetate [Tambocor] 50 mg PO Q12H #60 tab 01/24/19
[2019-01-24] MEDS ORDERED: CYANOCOBALAMIN 1,000 MCG TABLET PO SCH (09:00)
[2019-01-24] MEDS ORDERED: LORATADINE 10 MG TABLET PO SCH (09:00)
[2019-01-24] MEDS ORDERED: FLECAINIDE ACETATE 100 MG TABLET PO SCH ×2 (09:00)
[2019-01-24] MEDS ORDERED: FLUTICASONE PROPIONATE 120 SPRAY INHALER NS SCH (09:00)
[2019-01-24] MEDS ORDERED: ATENOLOL 100 MG TABLET PO SCH ×2 (09:00)
[2019-01-24] MEDS ORDERED: FOLIC ACID 1 MG TABLET PO SCH (09:00)
[2019-01-24] MEDS ORDERED: buPROPion HCL 150 MG TAB.SR.24H PO SCH (09:00)
[2019-01-24] MEDS: MAGNESIUM HYDROXIDE 30 ML UDC PO SCH (09:05)
[2019-01-24 10:49] VITALS: BP 101/46
--- NOTE | 2019-01-24 14:34 | ECHO ---
This report is available in the EMR
== END 2019-01-24 11:15 | disposition home or self-care (01) ==
LOC: MS
PROVIDERS: ADMIT Internal Medicine; ATTEND Internal Medicine
DX: F41.9 Anxiety disorder, unspecified; L40.9 Psoriasis, unspecified; Z96.651 Presence of right artificial knee joint; M19.90 Unspecified osteoarthritis, unspecified site; R53.1 Weakness; G47.33 Obstructive sleep apnea (adult) (pediatric); E03.9 Hypothyroidism, unspecified; K21.9 Gastro-esophageal reflux disease without esophagitis; I48.91 Unspecified atrial fibrillation; I10 Essential (primary) hypertension
CPT/HCPCS: 36415; 71020; 71046; 80053; 83519; 83880; 84443; 84484; 85025; 93005; 93306; 96360; 96361; 97161; G0378; G0379